=== PATIENT | male | born 1965 | race Caucasian/White ===

== ENCOUNTER 2017-08-04 08:29 | Inpatient (IN) | payer BC ==
[~2017-08-04] VITALS: Ht 175.3 cm; Wt 92.0 kg
[~2017-08-04 08:29] MED LIST: ASPIR-LOW81 MG PO; EXFORGE 10/31 TABLET PO; LIPITOR40 MG PO; METOPROLOL SUC100 MG PO; PLAVIX75 MG PO
[2017-08-04 16:18] VITALS: BP 125/70
[2017-08-04 16:25] VITALS: BP 125/70
[2017-08-04 19:21] VITALS: BP 144/90
[2017-08-04 22:40] VITALS: BP 138/70
[2017-08-05 04:07] VITALS: BP 105/72
[2017-08-05 09:30] VITALS: BP 146/86
[2017-08-05 12:47] VITALS: BP 130/84
[2017-08-05 16:30] VITALS: BP 142/81
[2017-08-05 19:00] VITALS: BP 121/77
== END 2017-08-05 21:30 | disposition short-term general hospital (02) | DRG 287 ==
LOC: CATH 08:29 → 4EAST 11:20 → 2SOUTH 11:20 → 4EAST 11:20 → ENRESERV 13:01 → 4EAST 15:49
DX: I25.119 Atherosclerotic heart disease of native coronary artery with unspecified angina pectoris (principal); I10 Essential (primary) hypertension; E78.5 Hyperlipidemia, unspecified; Z95.5 Presence of coronary angioplasty implant and graft; I24.0 Acute coronary thrombosis not resulting in myocardial infarction
CPT/HCPCS: 93005; C1769; C1887; G0378; J1644; J2250; J3010; J7030